=== PATIENT | female | born 1980 | race Caucasian/White ===

== ENCOUNTER → 2017-11-28 | Outpatient (CLI) | payer OTHER ==
[~2017-11-28] MED LIST: ACET-3017 PO; BENZ57AE; HYDR-6045 RC; IBUP800T37 PO; LANO56CR3 TP; PREN-162 PO
--- NOTE | 2017-11-29 13:48 | RADIOLOGY IMAGING REPORT ---
FACILITY: [facility] PATIENT NAME: NHI EDWARDS : [id number] MR: [id number] V: [id number] EXAM DATE: [id number] ORDERING PHYSICIAN: ROSAMARIA POZO TECHNOLOGIST: Sanaz Mcgee PROCEDURE:BILATERAL DIGITAL SCREENING MAMMOGRAM WITH CAD ASSISTED INTERPRETATION & 3D TOMOSYNTHESIS COMPARISON:07/17/16, 07/03/11 INDICATIONS:SCREENING FINDINGS: Breast parenchyma is heterogeneously dense. There are no mammographic findings concerning for malignancy. There is no significant interval change. DIAGNOSTIC CATEGORY 1--NEGATIVE. RECOMMENDATIONS: ROUTINE MAMMOGRAM AND CLINICAL EVALUATION IN 1 YR. IMPRESSION: BIRADS 1: Negative Dictated by: Kashif Cobos on 11/29/2017 at 9:04 Transcribed by: [email or web address] on 11/29/2017 at 11:35 Approved by: Kashif Cobos on 11/29/2017 at 13:47 [facility]
== END ==
LOC: MAMO 00:40
PROVIDERS: ATTEND Obstetrics & Gynecology
DX: Z12.31 Encounter for screening mammogram for malignant neoplasm of breast (principal)
CPT/HCPCS: 77063; 77067

== ENCOUNTER → 2019-01-02 | Outpatient (CLI) | payer OTHER ==
--- NOTE | 2019-01-02 10:50 | RADIOLOGY IMAGING REPORT ---
FACILITY: PATIENT NAME: NHI EDWARDS : [id number] MR: [id number] V: [id number] EXAM DATE: [id number] ORDERING PHYSICIAN: NAHED FERRER TECHNOLOGIST: Sanaz Mcgee PROCEDURE:BILATERAL DIGITAL SCREENING MAMMOGRAM WITH CAD ASSISTED INTERPRETATION & 3D TOMOSYNTHESIS COMPARISON:Prior mammograms 11/28/17, 07/17/16. INDICATIONS:SCREENING FINDINGS: The breasts are heterogeneously dense which can obscure small masses. Just above mid nipple line in the posterior 1/3 on the Right MLO view there is an ovoid area of increased density not appreciated on the prior study. Spot compression view is recommended. This is best appreciated on Tomographic slice 34. DIAGNOSTIC CATEGORY 0--INCOMPLETE: NEED ADDITIONAL IMAGING EVALUATION. RECOMMENDATIONS: ADDITIONAL MAMMOGRAPHIC VIEWS REQUIRED: RIGHT BREAST. IMPRESSION: BIRADS 0: Incomplete. Additional views of the Right breast recommended as described above. Dictated by: Tasha Kaufman M.D. on 01/02/2019 at 9:25 Transcribed by: [email or web address] on 01/02/2019 at 10:17 Approved by: Tasha Kaufman M.D. on 01/02/2019 at 10:49 [facility]
== END ==
LOC: MAMO 02:06
PROVIDERS: ATTEND Physician Assistant
DX: R92.8 Other abnormal and inconclusive findings on diagnostic imaging of breast (principal)
CPT/HCPCS: 77063; 77067

== ENCOUNTER → 2019-01-14 | Outpatient (CLI) | payer OTHER ==
--- NOTE | 2019-01-14 17:24 | RADIOLOGY IMAGING REPORT ---
[place] [facility] [place] NAME: NHI EDWARDS : [id number] MR: [id number] V: [id number] EXAM DATE: ORDERING PHYSICIAN: NAHED FERRER TECHNOLOGIST: Sanaz Mcgee PROCEDURE:RIGHT DIGITAL DIAGNOSTIC MAMMOGRAM WITH CAD ASSISTED INTERPRETATION & 3D TOMOSYNTHESIS COMPARISON:Prior mammogram 01/02/2019. INDICATIONS:Further evaluation FINDINGS: A Spot compression view was obtained in the area of interest in the Right breast on the Right MLO view. Spot compression view demonstrated no focal mass lesion. Tomographic images revealed no underlying mass or architectural change. DIAGNOSTIC CATEGORY 1--NEGATIVE. RECOMMENDATIONS: ROUTINE MAMMOGRAM AND CLINICAL EVALUATION IN 1 YR. IMPRESSION: BIRADS 1: Negative. Dictated by: Josemanuel Andrews M.D. on 01/14/2019 at 15:23 Transcribed by: ANJELICA on 01/14/2019 at 15:39 Approved by: Josemanuel Andrews M.D. on 01/14/2019 at 17:23 [facility]
== END ==
LOC: MAMO 00:46
PROVIDERS: ATTEND Physician Assistant
DX: R92.2 Inconclusive mammogram (principal)
CPT/HCPCS: 77061; 77065